=== PATIENT | male | born 1985 | race Caucasian/White ===

== ENCOUNTER 2021-01-07 18:40 | Emergency (ER) | payer OTHER ==
[2021-01-07] MEDS ORDERED: HYDROCODONE-AC1 EACH PO (21:14)
[2021-01-07] MEDS ORDERED: ZOFRAN ODT 4 MG4 MG PO (21:19)
[2021-01-07] MEDS ORDERED: LODINE CAP 300300 MG PO (21:19)
== END 2021-01-07 21:25 | disposition home or self-care (01) ==
LOC: ER1 18:40
DX: S52.125A Nondisplaced fracture of head of left radius, initial encounter for closed fracture (principal); I10 Essential (primary) hypertension; V89.9XXA Person injured in unspecified vehicle accident, initial encounter
CPT/HCPCS: 29125; 73080; 99283